=== PATIENT | female | born 1955 | race Caucasian/White ===

== ENCOUNTER → 2016-12-21 | Outpatient (CLI) | payer SELFPAY | LOC: LABN 09:26 | PROVIDERS: ATTEND Radiology Radiation Oncology | DX: C21.1 Malignant neoplasm of anal canal (principal) | CPT/HCPCS: 87070; 87077; 87106; 87147; 87186; 87205 ==

== ENCOUNTER 2017-02-01 08:58 | Day surgery (SDC) | payer SELFPAY ==
[~2017-02-01] VITALS: Ht 172.7 cm; Wt 58.7 kg
[~2017-02-01 08:58] MED LIST: IBUP-1724 PO; LIDOCAINE 1% (10mg/ml) 2ml SDV INJ ONE; LR 1,000 ML IV SCH
--- OUTSIDE RECORDS SUMMARY | 2017-02-01 09:02 | XMS REPORT ---
Author Author Jessenia Abrams Organization [employer] Address Unknown Phone Unavailable Care Team Providers Care C Software Engineer Name Role Phone Jessenia Abrams CP Unavailable Allergies, Adverse Reactions, Alerts Substance Reaction Event Type N.K.D.A. Info Not Available Non Drug Allergy Problems Problem Type Condition Code Onset Dates Condition Status Assessment general medical exam Z00.00 Active Assessment Acute hemorrhoid K64.9 Active Problem Constipation, unspecified constipation type K59.00 Active Assessment Constipation, unspecified constipation type K59.00 Active Assessment Anal fissure K60.2 Active Medications Medication Code System Code Instructions Start Date End Date Status Dosage Ibuprofen [facility] [address]-31 200 MG Orally prn 3 tabs Procedures Procedure Coding System Code Date OFFICE VISIT, ENTOMOLOGY TEACHER-LOW COMPLEXITY (30 MIN.) CPT-4 75491 Aug 02, 2016 Vital Signs Date/Time: Aug 02, 2016 Temperature 99.5 F Height 68 in Weight 147.12 lbs Blood Pressure Diastolic 76 mm Hg Blood Pressure Systolic 130 mm Hg Cardiac Monitoring Heart Rate 74 /min BMI 22.37 Index Oximetry 91 % Respiratory Rate 16 /min Results No Known Results Summary Purpose [employer] Submission
--- OUTSIDE RECORDS SUMMARY | 2017-02-01 09:02 | XMS REPORT ---
Author Author Jessenia Abrams Organization [employer] Address Unknown Phone Unavailable Care Team Providers Care Groundsman Name Role Phone Jessenia Abrams CP Unavailable Allergies No Known Allergies Problems Problem Type Condition Code Onset Dates Condition Status Problem Constipation, unspecified constipation type K59.00 Active Medications Medication Code System Code Instructions Start Date End Date Status Dosage Lovastatin [facility] [address]-38 10 MG Orally Once a day Aug 03, 2016 1 tablet with a meal Results No Known Results Summary Purpose [employer] Submission
--- OUTSIDE RECORDS SUMMARY | 2017-02-01 09:02 | XMS REPORT | Referral Summary ---
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 Discharge Disposition: -Home or Self Care Attending Physician: Yousif Velazquez MD Admitting Physician: Yousif Velazquez MD Vital Signs Most recent to 1 oldest [Reference Range]: Peripheral Pulse 73 bpm Rate [60-100 bpm] (10/17/16 12:57 PM) Respiratory Rate 18 br/min [14-20 br/min] (10/17/16 12:57 PM) Blood Pressure 132/64 mmHg [90-140/60-90 mmHg] (10/17/16 12:57 PM) SpO2 95 % (10/17/16 12:57 PM) Problem List Condition Effective Dates Status Health Status Informant 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) Allergies, Adverse Reactions, Alerts No Known Medication Allergies Medications ibuprofen 200 mg, Oral, q8hr, 0 Refill(s) Start Date: 10/17/16 Status: Ordered Sanford 5 mg-325 mg oral tablet 1 tabs, Oral, q6hr, as needed for pain, 0 Refill(s) Start Date: 10/17/16 Status: Ordered Results No data available for this section Immunizations No data available for this section Procedures Procedure Date Related Diagnosis Body Site Bilateral tubal ligation 1986 Social History Social History Type Response Smoking Status Current every day smoker Assessment and Plan Extracted from: Title: Office Visit Note Author: Yousif Velazquez MD Date: 10/17/16 Assessment/Plan 1.Squamous cell carcinoma of anus Ordered: Office Visit Level 4 New [id number] Plan:Oncology consult/evaluation. Rectal examination under anesthesia/ colonoscopy.Patient will likely needInsertion of Power Portto facilitate chemoradiation: I did review the patient'schartincluding office noteperformed from patient's PCP from October 12, 2016. Reviewed note fromsurgeon as well from October 17, 2016. Punch biopsies were performedof area of concern. Pathology did return revealing a well-differentiated squamous cell carcinoma. I did spend a fair amount of time discussing management forsquamous cell carcinoma of the anuswith the patient and her . I informed the patient that for a smallsuperficial squamous cell cancer of the anus(T1 lesion)treatment would be that of an excisional biopsy.Treatment for a largeror more invasive squamous cell carcinoma anus (T2 lesion orgreater) is chemoradiationand notsurgery. [facility] from a physical examinationof the perianal region noted externally todayitis my intuition the patient has a more advancedsquamous cell cancer of the anus.Patient informs me that she has a oncologyconsultset upearly next week. I do feel the patient should undergo a metastatic workup by undergoing a CT scan of herchest,abdomen and pelvis.Pending these radiographic results patient may also require endorectal ultrasoundor MRI of the rectum.I also feel the patientshould alsoundergo a rectal examination under anesthesia and colonoscopyto further evaluate the extent of hersquamous cell cancer of the anus. I informed the patient that it is my intuition thatshe ultimately will needto undergo chemoradiationforthe treatment of her newlymostsquamous cell cancer of the anus. I did go ahead and discuss with the patientthat she may require placement of a power port catheter to facilitatechemotherapy if deemed necessary. I did go ahead and show the patient an actual Power Port catheter for illustration purposes. I alsodiscussed with the patient in detail what insertion of a power port catheter entailed and its associated risks including but not inclusive of bleeding, infection, and potential for pneumothorax.
--- OUTSIDE RECORDS SUMMARY | 2017-02-01 09:02 | XMS REPORT ---
Author Author Jessenia Abrams Organization [employer] Address Unknown Phone Unavailable Care Team Providers Care Title Abstractor Name Role Phone Jessenia Abrams CP Unavailable Allergies No Known Allergies Problems Problem Type Condition Code Onset Dates Condition Status Assessment general medical exam Z00.00 Active Problem Constipation, unspecified constipation type K59.00 Active Medications Medication Code System Code Instructions Start Date End Date Status Dosage Ibuprofen [facility] [place] [address]-63 200 MG Orally prn 3 tabs Procedures Procedure Coding System Code Date COMPREHENSIVE METABOLIC PANEL CPT-4 39228 Aug 02, 2016 LIPID PANEL CPT-4 64173 Aug 02, 2016 COMPLETE CBC W/AUTO DIFF WBC CPT-4 69658 Aug 02, 2016 TSH CPT-4 31245 Aug 02, 2016 Results No Known Results Summary Purpose [employer] Submission
[2017-02-01 09:16] VITALS: Ht 172.7 cm; Wt 58.7 kg
[2017-02-01 09:17] VITALS: BP 157/74; PULSE 83; RESP 15; TEMP 98.2; O2SAT 92
--- NOTE | 2017-02-01 10:59 | ANESPREOP ---
Anesthesia Record Date and Time DATE: 02/01/17 TIME: 10:57 Pre-Op Diagnosis squamous cell ca of anus Proposed Surgical Procedure RECTAL EXAM & COLONOSCOPY Allergies: Coded Allergies: No Known Allergies (Unverified , 02/01/17) Ht/Wt/BMI Height: 5 ' 8.00 " Weight: 58.700 kg BMI: 19.7 kg/m2 Vital Signs Date Time Temp Pulse Resp B/P Pulse Ox O2 Delivery O2 Flow Rate FiO2 02/01/17 09:17 98.2 83 15 157/74 92 Room Air Medications Inpatient Medications Current Medications Medications (Trade) Dose Ordered Sig/Mitchell Start Time Stop Time Status Last Admin Dose Admin Lactated Ringer's (Lactated Ringers) 1,000 ml @ 30 mls/hr Q24H 02/01/17 07:00 02/01/17 09:36 30 MLS/HR Ibuprofen (Ibuprofen) 200 Mg Tablet, 2 TAB PO Q4H PRN for PAIN, (Reported) Last Taken: on 01/30/17 Currently on Beta Garrett: No Medical/Surgical History Anesthesia PMH: Reports: Anesthesia Reactions (NO AIRWAY ISSUES), Cancer ( RECTAL), Denies: *Diabetes, Arthritis, Blood Transfusion Reac, Clotting Problems , Deep Vein Thrombosis, Glaucoma, Malignant Hyperthermia, Pacemaker, Renal Disease, Thyroid Disease Smoking Status: Current every day smoker Has pt. smoked today?: No Use Chewing Tobacco?: No Second Hand Exposure: No Substance Use Type: does not use Substance last used: unknown Alcohol Intake: none Last Drink: unknown HX of Last Menstrual Period: AGE 50 Past Surgical History Orthopedic Surgeries: Abdominal Surgeries: Genitourinary Surgeries: Cardiac Surgeries: Endocrine Surgeries: Reproductive Surgeries: Yes - TUBAL Neurological Surgeries: Ear Surgeries: Nose Surgeries: Throat Surgeries: Other Surgeries: Anesthesia Adverse Reactions: FOUND none Family Hx of Anesthesia Advers: none Hx of Motion Sickness: No Pertinent Findings EKG Rhythm: Sinus Rhythm Physical Exam Respiratory: Bilat breath sounds equal, Lungs clear Cardiovascular: FOUND Regular rate, rhythm, FOUND No murmur Airway Assessment Mallampati Score: I TMD: 3 Fingerbreadths Neck Extension: Good Overall Assessment: No Airway Concerns ASA: 2 Plan Anesthesia Plan: TIVA Discussion Discussed risks/options/alternatives of anesthesia and questions answered. Patient consents. Nursing pain assessment noted. Present: Children Attestation Statement Prior to the delivery of any anesthetic medication, I examined the patient, developed the plan, obtained the patient's consent and discussed the risk and benefits of the procedure with the patient/guardian. NINFA LAM CRNA Feb 01, 2017 10:59
[2017-02-01] MEDS ORDERED: PROPOFOL 500mg 50 ML IV ONE (11:44)
[2017-02-01] MEDS ORDERED: LIDOCAINE 1% (10mg/ml) 2ml SDV ONE (11:44)
[2017-02-01 12:04] VITALS: BP 135/68; PULSE 99; RESP 14; TEMP 97.9; O2SAT 94
--- NOTE | 2017-02-01 12:13 | ANESPO ---
Post-Op Note Date 02/01/17 Time: 12:12 Status Pt Participated in Evaluation: Pt participated in person Vital Signs Date Time Temp Pulse Resp B/P Pulse Ox O2 Delivery O2 Flow Rate FiO2 02/01/17 09:17 98.2 83 15 157/74 92 Room Air Respiratory Function: Airway patent, Regular respirations Cardiovascular Function: Regular pulse Mental Status: Alert/oriented Pain Level Intensity: 0 Hydration: Taking po fluids, IV infusing Complications during Recovery None apparent Post-Anesthesia Notes PT. EDGAR. WELL Follow-Up Instructions Instructions Per Surgeon Additional Information NONE NINFA ALM CRNA Feb 01, 2017 12:13
[2017-02-01 12:18] VITALS: BP 153/73; PULSE 95; RESP 22; O2SAT 95
[2017-02-01 12:34] VITALS: BP 181/71; PULSE 94; RESP 20; O2SAT 94
--- NOTE | 2017-02-01 12:35 | NUR ---
STATUS PATIENT BLOOD PRESSURE IS 181/71. PATIENT DENIES PAIN, NO C/O VOICED. DENISE LAM DELI SLICER NOTIFIED OF PATIENT PRESSURE. NO FURTHER ORDERS RECEIVED AT THIS TIME. PATIENT TO MONITOR PRESSURE AT HOME AND NOTIFY PRIMARY PHYSICIAN IF NEEDED.
--- NOTE | 2017-02-01 20:32 | OPNOTEF ---
DATE OF SERVICE 02/01/2017 SURGEON Yousif Velazquez MD PREOPERATIVE DIAGNOSIS Personal history for squamous cell cancer of the anus. POSTOPERATIVE DIAGNOSIS Personal history for squamous cell cancer of the anus. Colonic polyps x 2 at 80 cm from the anal verge. PROCEDURE Colonoscopy with polypectomies via cold biopsy technique, random biopsies of anal verge via cold biopsy technique. ANESTHESIA TIVA BRIEF HISTORY/INDICATIONS Mrs. De Jesus is a 61-year-old female who is known to my surgical practice. Patient has had the misfortune of developing squamous cell cancer of the anus and has completed her chemoradiation treatment. She presents today to undergo colonoscopy. She has never undergone prior endoscopic evaluation of her colon. For completeness please refer to notes included in the patient's chart. FINDINGS Upon colonoscopy I did not appreciate any evidence for angiodysplastic lesions, diverticula, deidre malignancies nor any evidence for residual squamous cell cancer involving the anus. She was found have two polyps that were on the order about 5-6 mm in diameter located at about 80 cm from the anal verge. These polyps were removed in their entirety via cold biopsy technique. NARRATIVE OF PROCEDURE After informed consent was obtained the patient was brought to the endoscopy suite and placed on the table in left lateral decubitus position. Patient subsequently underwent total intravenous anesthesia by the nurse oil well pumper at my request. Formal timeout was then completed. Her anoderm was carefully visibly inspected. There were no worrisome abnormalities noted near the anal verge. Next, a digital rectal exam was performed. Patient had a slight component of some anal stenosis but no suspicious nodularities were noted within the anal canal nor within the rectum upon digital rectal examination. An Olympus colonoscope was inserted into the anus and advanced through the lumen of the colon under direct visualization at all times until the cecum was ascertained. Triangulation of the tenia coli, ileocecal valve and appendiceal lumen were all visualized. The scope was slowly withdrawn. As the scope was being slowly withdrawn, two polyps were identified at 80 cm from the anal verge. These polyps were on the order of about 5-6 mm in diameter and removed in the entirety via cold biopsy technique. The colonoscope was continued to be slowly withdrawn. As stated above, the entire colon was without evidence for angiodysplastic lesions, diverticula or deidre malignancies. Once the colonoscope was withdrawn back to the rectal vault a J-maneuver was performed. No worrisome perianal pathology was noted. Scope was allowed to straighten and was withdrawn back to the level of the anal verge. No visible abnormalities were noted involving the anoderm. Nonetheless, several biopsies were obtained at the level of the anal verge via cold biopsy technique randomly given her personal history of squamous cell cancer of the anus. The scope was withdrawn from the patient's anus. Patient tolerated the procedure without difficulty and was sent back to the preop area in stable condition. Will await biopsy results from today's colonoscopy and proceed accordingly with further recommendations thereafter. TRICE
== END 2017-02-01 12:44 | disposition home or self-care (01) ==
LOC: SCU 08:58
PROVIDERS: ATTEND Surgery
DX: D12.6 Benign neoplasm of colon, unspecified (principal); Z85.048 Personal history of other malignant neoplasm of rectum, rectosigmoid junction, and anus; Z92.3 Personal history of irradiation; Z92.21 Personal history of antineoplastic chemotherapy; Z72.0 Tobacco use; Z79.1 Long term (current) use of non-steroidal anti-inflammatories (NSAID); Z79.899 Other long term (current) drug therapy; Z59.7 Insufficient social insurance and welfare support

== ENCOUNTER → 2017-02-12 | Outpatient (CLI) | payer MEDICAID ==
[~2017-02-12] MED LIST changes: +IOHEXOL 300 MG/ML 75ml INJECTION ONE; -LIDOCAINE 1% (10mg/ml) 2ml SDV INJ ONE; -LR 1,000 ML IV SCH; +NORMAL SALINE 100 ML ONE; +SALINE FLUSH 10ml SYRINGE ONE
--- NOTE | 2017-02-12 16:24 | DI ---
Indication: ITS.REASON: C21.1 Malignant neoplasm of anal canal PROCEDURE: CT CHEST/ABD/PELVIS WC: Encounter: Subsequent Comparison: 10/24/2016 Technique: Axial CT images were performed through the chest, abdomen and pelvis after the administration of intravenous contrast. Coronal and sagittal two-dimensional reformats. Automated Exposure Control and Iterative Reconstruction dose reducing techniques were utilized. Contrast: Omnipaque 300 100 mL Findings: Chest: The lungs are emphysematous and hyperinflated. There is a persistent segmental area of bronchiectasis with cystic changes in the posterior superior right upper lobe. There may be some central occlusion of the bronchus supplying this area of the lung and there is a prominent right hilar lymph node. These changes appear fairly similar to prior study, without definite increase in size or severity. There is a small amount of bronchiectasis in the inferomedial right middle lobe and in the inferior left upper lobe. No definite pleural effusion. Heart size is normal. No pericardial effusion. No definite spine or rib metastasis. Abdomen: The liver, spleen, kidneys, pancreas, and adrenal glands are normal. The gallbladder is thin walled and nondistended, without stones. The abdominal aorta is nonaneurysmal with fairly extensive heterogeneous partially calcified atherosclerotic disease. There is no retroperitoneal or mesenteric adenopathy. There is no definite bowel distention or bowel wall thickening. CT PELVIS: There is no significant distal colonic diverticulosis or evidence for diverticulitis. A normal appendix is identified. There is no pelvic sidewall adenopathy. No free fluid. No definite bony destructive process. The urinary bladder is not distended. The uterus is unremarkable. No definite ovarian abnormality. No definite bony metastasis. There is mild bilateral sacroiliitis. IMPRESSION: Suspect postinfectious or postinflammatory process primarily effecting the right upper lobe posteriorly with bronchiectasis and cystic changes as well as possible bronchial occlusion. Prominent right hilar lymph node which is stable from prior study. This could be reactive to the Bronchiolitis. Underlying neoplasm cannot completely be excluded but this would be more more consistent with primary lung rather than metastatic process. No evidence for other adenopathy, solid organ or bony metastasis. .
== END ==
LOC: IMA 13:30
PROVIDERS: ATTEND Internal Medicine Hematology & Oncology
DX: C21.1 Malignant neoplasm of anal canal (principal); R91.8 Other nonspecific abnormal finding of lung field
CPT/HCPCS: 71260; 74177; J7050; Q9967